=== PATIENT | male | born 1965 | race Two or more races ===

== ENCOUNTER 2019-10-22 04:07 | Emergency (ER) | payer SELFPAY ==
[~2019-10-22] VITALS: Ht 167.6 cm; Wt 72.6 kg
[2019-10-22 04:28] LABS: BASOPHILS % (AUTO) 0.5 % (0.0-2.0); EOSINOPHILS % (AUTO) 0.7 % (0.0-6.0); HEMATOCRIT 37 % (39-51); HEMOGLOBIN 11.6 g/dL (13.5-17.5); LYMPHOCYTES # (AUTO) 1.1 /CMM (0.8-4.8); LYMPHOCYTES % (AUTO) 11.4 % (20.0-44.0); MEAN CORPUSCULAR HGB CONC 32 g/dl (31.0-36.0); MEAN CORPUSCULAR VOLUME 80 fL (80-96); MONOCYTES # (AUTO) 1.1 /CMM (0.1-1.30); MONOCYTES % (AUTO) 10.8 % (2.0-12.0); NEUTROPHILS # (AUTO) 7.7 /CMM (1.8-8.9); NEUTROPHILS % (AUTO) 76.6 % (43.0-81.0); PLATELET COUNT (AUTO) 329 /CMM (150-450); RED BLOOD CELL COUNT(AUTO) 4.59 MIL/uL (4.5-6.0)
[2019-10-22] MEDS ORDERED: LORAZEPAM INJ 2 MG/ML VIAL IM ONE (04:30)
[2019-10-22] MEDS ORDERED: LORAZEPAM INJ 2 MG/ML VIAL ONE (04:32)
[2019-10-22 04:42] LABS: CALCIUM, SERUM 8.8 mg/dL (8.5-10.1); CARBON DIOXIDE 26 mmol/L (21-32); CHLORIDE 105 mmol/L (98-107); CREATININE 1.5 mg/dL (0.6-1.3); GLUCOSE 95 mg/dL (74-106); POTASSIUM 3.9 mmol/L (3.5-5.1); SODIUM SERUM 142 mmol/L (136-145); UREA NITROGEN, BLOOD 25 mg/dL (7-18)
[2019-10-22 04:51] LABS: ALANINE AMINOTRANSFERASE 44 U/L (12-78); ALBUMIN 3.5 g/dL (3.4-5.0); ALCOHOL, BLOOD < 3 mg/dL (0-0); ALKALINE PHOSPHATASE 129 U/L (46-116); ASPARTATE AMINOTRANSFERASE 49 U/L (15-37); BILIRUBIN,DIRECT 0.1 mg/dL (0.0-0.2); BILIRUBIN,TOTAL 0.3 mg/dL (0.2-1.0); SALICYLATE 0.7 mg/dL (2.8-20.0); TOTAL PROTEIN, SERUM 7.8 g/dL (6.4-8.2)
[2019-10-22 04:52] LABS: ACETAMINOPHEN 0 ug/ml (10-30)
[2019-10-22] MEDS ORDERED: HALOPERIDOL LACTATE INJ 5 MG/ML VIAL IM ONE (05:00)
[2019-10-22] MEDS ORDERED: diphenhydrAMINE HCL 50 MG/ML VIAL IM ONE (05:00)
--- NOTE | 2019-10-22 05:00 | NUR ---
[employer] FOUND WANDERING W/ UNSTEADY GAIT. TO ER BED 13. NO RESP DISTRESS NOTED, BREATHING EVEN AND UNLABORED. BROUGHT IN FOR ALTERMED MENTAL STATUS. PT IS NOTED TALKING INCOHERENTLY AND DOES NOT MAKE SENSE. PT IS CRYING ONE MOMENT THEN LAUGING THEN ALL OF A SUDDEN STARTS YELLING. PT DENIES ANY PAIN. DENIES HARMING HIMSELF OR OTHERS. 1:1 SITTER AT BEDSIDE FOR SAFETY. MD WAS AT BEDSIDE FOR EVAL. ORDERS REDCEIVED, NOTED AND CARRIED OUT.
[2019-10-22] MEDS ORDERED: diphenhydrAMINE HCL 50 MG/ML VIAL ONE (05:02)
[2019-10-22] MEDS ORDERED: HALOPERIDOL LACTATE INJ 5 MG/ML VIAL ONE (05:03)
--- NOTE | 2019-10-22 05:11 | NUR ---
PT TO RADIOLOGY FOR CT HEAD
--- NOTE | 2019-10-22 05:36 | NUR ---
PT BACK FROM CT. PT IN BED SLEEPING
[2019-10-22] MEDS ORDERED: LIDOCAINE 2% JEL UROJET 10 ML MM ONE ×2 (05:43→06:00)
--- NOTE | 2019-10-22 05:50 | NUR ---
URINE COLLECTED VIA IN AND OUT CATH PER MD ORDERED. STRICT STERILE TECHNIQUE OBSERVED WHEN DOING PROCEDURE
[2019-10-22 06:01] LABS: APPEARANCE,URINE Clear (CLEAR); BILIRUBIN,URINE Negative (NEGATIVE); BLOOD, URINE Moderate Ery/uL (NEGATIVE); COLOR,URINE Yellow (YELLOW); KETONES,URINE Negative (NEGATIVE); LEUKOCYTE ESTERASE ,URINE Negative (NEGATIVE); NITRITE, URINE Negative (NEGATIVE); PH,URINE 5.5 (5.0-8.0); PROTEIN,URINE 30 mg/dl (NEGATIVE); UGLUCOSE Negative (NEGATIVE); UROBILINOGEN,URINE 0.2 EU/dL (0.2)
[2019-10-22 06:10] LABS: BACTERIA,URINE None seen /HPF (None Seen); SQUAMOUS EPITHELIAL CELL,UR Rare /HPF (None Seen); WBC,URINE 0-2 /HPF (0-3)
--- NOTE | 2019-10-22 06:14 | NUR ---
PT IN BED SLEEPING. NO RESP DISTRESS NOTED
--- NOTE | 2019-10-22 16:30 | NUR ---
[facility] ETA 1HR
--- NOTE | 2019-10-22 19:22 | NUR ---
PATIENT CLEARED FOR DISCHARGE. AMBULATORY. -ACUTE DISTRESS NOTED. -SOB. AOX4. PROVIDED WITH SANDWICH AND FOOD. WEATHER APPROPRIATE CLOTHING PROVIDED WELL.
--- NOTE | 2019-10-22 19:31 | NUR ---
PATIENT REFUSED TO SIGN HOMELESS DISCHARGE PAPERWORK
[2019-10-22 19:32] VITALS: BP 118/73
== END 2019-10-22 19:32 | disposition home or self-care (01) ==
LOC: ER 04:09
DX: F19.10 Other psychoactive substance abuse, uncomplicated (principal); R45.1 Restlessness and agitation; R94.31 Abnormal electrocardiogram [ECG] [EKG]
CPT/HCPCS: 36415; 70450; 71045; 80048; 80076; 80305; 80307; 80329; 81001; 82962; 85025; 93005; 96372; 99284; G0480; J2060; J3490; 81000-TC; J1200; J1630